=== PATIENT | female | born 1985 | race Two or more races ===

== ENCOUNTER 2020-06-28 16:59 | Emergency (ER) | payer OTHER ==
[~2020-06-28] VITALS: Ht 157.5 cm; Wt 90.7 kg
[2020-06-28 17:04] VITALS: BP 120/84
== END 2020-06-28 21:05 | disposition home or self-care (01) ==
LOC: ER 16:59 → EDBD 16:59 → ER 21:05
DX: F41.0 Panic disorder [episodic paroxysmal anxiety] (principal); G43.909 Migraine, unspecified, not intractable, without status migrainosus
CPT/HCPCS: 70450; 93005